=== PATIENT | male | born 1995 | race American Indian/Alaskan Native ===

== ENCOUNTER 2020-06-15 23:33 | Emergency (ER) | payer OTHER ==
[2020-06-15 23:47] VITALS: BP 147/82; PULSE 84; TEMP 98.5; BMI 38.8
[2020-06-16] MEDS ORDERED: DEXAMETHASONE 4 MG TABLET (FP) PO ONE (00:30)
[2020-06-16] MEDS ORDERED: diphenhydrAMINE HCL 25 MG CAPSULE (FP) PO ONE ×2 (00:31→00:35)
[2020-06-16] MEDS ORDERED: DEXAMETHASONE 4 MG TABLET (FP) ONE (00:35)
== END 2020-06-16 01:09 | disposition home or self-care (01) ==
LOC: JER 23:33
DX: R21 Rash and other nonspecific skin eruption (principal); L23.9 Allergic contact dermatitis, unspecified cause
CPT/HCPCS: 99283-25